=== PATIENT | male | born 1940 | race Caucasian/White ===

== ENCOUNTER 2021-08-19 19:23 | Emergency (ER) | payer MEDICARE, OTHER ==
[~2021-08-19] VITALS: Ht 172.7 cm; Wt 75.0 kg
[~2021-08-19 19:23] MED LIST: ALPR1TAB6 PO; ALPR2TAB7 PO; ESZO3TAB28 PO; LURA40TA PO; VENL37.57 PO
--- NOTE | 2021-08-19 19:29 | PHYS DOC ---
Past History Past Medical History: Anxiety, Depression, Other Past Surgical History: Cholecystectomy, Other Alcohol Use: None Drug Use: None Adult General Chief Complaint Chief Complaint: ABDOMINAL PAIN HPI HPI Patient is a 81-year-old male presenting via EMS for stomach pain. Reports he had pizza and ice cream for lunch and a couple hours after ingestion developing periumbilical stomach cramping with associated nausea. Symptoms waxed and waned since onset but have been more problematic past 2 hours prompting him to call EMS for transfer to our facility. Patient was initially transferred to [facility] but was ultimately deferred to our ER. On arrival, patient complains of ongoing periumbilical cramping that does not radiate. States pain at its worst is 10/10 in severity but reports improvement with administered 8 mg Zofran by EMS. Has history of cholecystectomy and colon resection due to cancerous polyps in the past otherwise no other abdominal surgeries. He is currently being treated for anxiety and depression, no other medical issues reported. Denies any alcohol tobacco or illicit drug use. He is fully vaccinated against COVID-19 with no reported symptoms, sick contacts or recent travel Review of Systems Review of Systems Fourteen body systems of review of systems have been reviewed. See HPI for pertinent positives and negative responses, other doe all other systems are negative, non-pertinent or non-contributory Allergies Allergies Allergies Coded Allergies Type Severity Reaction Last Updated Verified No Known Drug Allergies 03/24/15 No Physical Exam Physical Exam Constitutional: Well developed, well nourished, no acute distress, non-toxic appearance. HENT: Normocephalic, atraumatic, bilateral external ears normal, oropharynx moist, no oral exudates, nose normal. Eyes: PERRLA, EOMI, conjunctiva normal, no discharge. Neck: Normal range of motion, no tenderness, supple, no stridor. Cardiovascular: Heart rate regular, sinus rhythm, 2+ holosystolic murmur otherwise no rubs or gallops Lungs & Thorax: Bilateral breath sounds clear to auscultation Abdomen: Bowel sounds normal, soft, generalized midline abdominal pain without any guarding or rebound, no masses, no pulsatile masses. Nonsurgical abdomen, no peritoneal signs Skin: Warm, dry, no erythema, no rash. Back: No tenderness, no CVA tenderness. Extremities: No tenderness, no cyanosis, no clubbing, ROM intact, no edema. Neurologic: Alert and oriented X 3, grossly normal motor & sensory function, no focal deficits noted. Psychologic: Affect normal, judgement normal, mood normal. Current Patient Data Vital Signs Vital Signs Date Time Temp Pulse Resp B/P (MAP) Pulse Ox O2 Delivery O2 Flow Rate FiO2 08/19/21 19:29 98.3 91 18 159/92 (114) 96 Room Air Vital Signs Date Time Temp Pulse Resp B/P (MAP) Pulse Ox O2 Delivery O2 Flow Rate FiO2 08/19/21 19:29 98.3 91 18 159/92 (114) 96 Room Air Lab Results Laboratory Tests Test 08/19/21 19:45 White Blood Count 13.5 x10^3/uL Red Blood Count 4.68 x10^6/uL Hemoglobin 15.9 g/dL Hematocrit 45.9 % Mean Corpuscular Volume 98 fL Mean Corpuscular Hemoglobin 34 pg Mean Corpuscular Hemoglobin Concent 35 g/dL Red Cell Distribution Width 13.9 % Platelet Count 311 x10^3/uL Neutrophils (%) (Auto) 87 % Lymphocytes (%) (Auto) 6 % Monocytes (%) (Auto) 6 % Eosinophils (%) (Auto) 0 % Basophils (%) (Auto) 1 % Neutrophils # (Auto) 11.7 x10^3uL Lymphocytes # (Auto) 0.8 x10^3/uL Monocytes # (Auto) 0.9 x10^3/uL Eosinophils # (Auto) 0.0 x10^3/uL Basophils # (Auto) 0.1 x10^3/uL Sodium Level 140 mmol/L Potassium Level 4.4 mmol/L Chloride Level 100 mmol/L Carbon Dioxide Level 27 mmol/L Anion Gap 13 Blood Urea Nitrogen 18 mg/dL Creatinine 0.9 mg/dL Estimated GFR (Cockcroft-Gault) 81.2 BUN/Creatinine Ratio 20 Glucose Level 118 mg/dL Calcium Level 9.5 mg/dL Total Bilirubin 0.6 mg/dL Aspartate Amino Transf (AST/SGOT) 20 U/L Alanine Aminotransferase (ALT/SGPT) 20 U/L Alkaline Phosphatase 109 U/L Troponin I High Sensitivity 12 ng/L Total Protein 8.2 g/dL Albumin 3.8 g/dL Albumin/Globulin Ratio 0.9 Lipase 58 U/L Current Medications Medications (Trade) Dose Ordered Sig/Km Route PRN Reason Start Time Stop Time Status Last Admin Dose Admin Sodium Chloride 500 ml @ 0 mls/hr 1X ONCE IV 08/19/21 19:45 08/19/21 19:46 DC 08/19/21 19:50 Iohexol (Omnipaque 300 Mg/ml) 75 ml 1X ONCE IV 08/19/21 19:45 08/19/21 19:56 DC 08/19/21 20:38 Morphine Sulfate (Morphine 4mg Syringe) 4 mg 1X ONCE IV 08/19/21 19:45 08/19/21 19:56 DC 08/19/21 19:50 Info (Do NOT chart on this entry -- for MONITORING) 1 each PRN DAILY PRN MC SEE COMMENTS 08/19/21 20:00 08/21/21 19:59 EKG EKG EKG ordered and interpreted by myself at 1952 hrs. as sinus rhythm at 87 bpm, prolonged QRS at 132 otherwise unremarkable intervals, no axis deviation, T wave inversion noted in lead III, V1 and V3, right bundle branch block, no STEMI Radiology/Procedures Radiology/Procedures Exam: CT of abdomen and pelvis with contrast INDICATION: Epigastric pain TECHNIQUE: Sequential axial images through the abdomen and pelvis obtained following the administration of 75 mL of Isovue-370 IV contrast. Sagittal and coronal reformatted images were reconstructed from the axial data and reviewed. Exposure: One or more of the following in the visualized dose reduction techniques were utilized for this examination: 1. Automated exposure control 2. Adjustment of the MA and/or KV according to patient size 3. Use of iterative of reconstructive technique Comparisons: None FINDINGS: Heart size is normal. No pericardial effusion. Strandy opacities the dependent portion of the lungs likely representing atelectasis. No pleural effusion. Liver, spleen, pancreas and adrenals are unremarkable. Gallbladder surgically absent. No perinephric inflammation or hydronephrosis. No renal or ureteral calculi are identified. Bladder is partially distended and not well evaluated. Prostate is not enlarged. Dilated loops of small bowel are noted in the left hemiabdomen. There is transition to decompressed bowel noted in the right lower quadrant. The more dis gutierrez small bowel loops are decompressed. Large bowel is unremarkable. No free intra-abdominal air or fluid. Abdominal aorta has normal course and caliber. Abdominal vasculature is patent. No enlarged intra-abdominal lymph nodes are identified. No suspicious osseous lesions or acute fractures. IMPRESSION: Findings a small bowel obstruction with transition in the right lower quadrant. Electronically signed by: Lisa Holder MD (08/19/2021 9:01 PM) [facility] Heart Score C/O Chest Pain: No HEART Score for Chest Pain: HEART Score for Chest Pain Response (Comments) Value History Slighlty/Non-Suspicious 0 ECG Nonspecific Repolarizatio 1 Age > 65 2 Risk Factors 1 or 2 Risk Factors 1 Troponin < Normal Limit 0 Total 4 Risk Factors: Risk Factors: DM, Current or recent (<one month) smoker, HTN, HLP, family history of CAD, obesity. Risk Scores: Risk Factors: DM, Current or recent (<one month) smoker, HTN, HLP, family history of CAD, obesity. Course & Med Decision Making Course & Med Decision Making ABCs unremarkable HPI physical exam and comprehensive ER work-up concerning for small bowel obstr uction Patient symptoms improved but did not totally resolve with provided ER care. I disclosed need for hospitalization for serial abdominal exams and surgical consultation to reduce risk of current pathology worsening Attempts were made per patient request to transfer to [facility] who declined patient transfer. Next choice was [facility]. I spoke with on-call surgeon who agreed need for hospital transfer. I spoke with hospitalist who also agreed and accepted patient transfer Patient and son at bedside educated on entirety of ER findings and discussions above and were amenable to plan of care for hospital transfer as indicated. All questions and concerns addressed prior to transfer via EMS Dragon Disclaimer Dragon Disclaimer This electronic medical record was generated, in whole or in part, using a voice recognition dictation system. Departure Departure: Impression: Primary Impression: Small bowel obstruction Disposition: 02 SHORT TERM HOSPITAL ([facility]) Admitting Physician: Other (DR [email or web address]) Condition: STABLE AKSHAT CINTRON DO Aug 19, 2021 19:29
[2021-08-19] MEDS ORDERED: MORPHINE SULFATE 4 MG/ML DISP.SYRIN. IV ONE ×2 (19:45→23:00)
[2021-08-19] MEDS ORDERED: IV NORMAL SALINE 500ML 500 ML IV ONE (19:45)
[2021-08-19] MEDS ORDERED: IOHEXOL 300 MG/ML 75 ML VIAL. IV ONE (19:45)
[2021-08-19 20:00] LABS: BASO # 0.1 x10^3/uL (0.0-0.2); BASO % 1 % (0-3); EOS % 0 % (0-3); HEMATOCRIT 45.9 % (39.0-53.0); HEMOGLOBIN 15.9 g/dL (13.0-17.5); LYMPH # 0.8 x10^3/uL (1.0-4.8); LYMPH % 6 % (24-48); MEAN CORPUSCULAR HEMOGLOBIN 34 pg (25-35); MEAN CORPUSCULAR HGB CONC 35 g/dL (31-37); MEAN CORPUSCULAR VOLUME 98 fL (79-100); MONO # 0.9 x10^3/uL (0.0-1.1); MONO % 6 % (0-9); NEUT # 11.7 x10^3uL (1.8-7.7); NEUT % 87 % (31-73); PLATELET COUNT 311 x10^3/uL (140-400); RED BLOOD COUNT 4.68 x10^6/uL (4.30-5.70); RED CELL DISTRIBUTION WIDTH 13.9 % (11.5-14.5); WHITE BLOOD COUNT 13.5 x10^3/uL (4.0-11.0)
[2021-08-19] MEDS ORDERED: CONTRAST GIVEN. MC PRN (20:00)
[2021-08-19 20:10] LABS: CALCIUM 9.5 mg/dL (8.5-10.1); CREATININE 0.9 mg/dL (0.7-1.3); GFR 81.2; POTASSIUM 4.4 mmol/L (3.5-5.1)
[2021-08-19 20:15] LABS: ALBUMIN 3.8 g/dL (3.4-5.0); ALBUMIN/GLOBULIN RATIO 0.9 (1.0-1.7); TOTAL BILIRUBIN 0.6 mg/dL (0.2-1.0); TOTAL PROTEIN 8.2 g/dL (6.4-8.2)
--- NOTE | 2021-08-19 20:58 | EKG ---
[address] [address] Test Date: 2021-08-19 Test Time: 19:48:56 Pat Name: ZAKI JANSEN Department: Room: Gender: M [employer]: LUIS : 1940 Requested By: AKSHAT CINTRON Order Number: [id number] Reading MD: Jez Jain MD Measurements Intervals Terry Rate: 87 P: 7 WY: 158 QRS: 86 QRSD: 132 T: 22 QT: 356 QTc: 429 Interpretive Statements SINUS RHYTHM RIGHT BUNDLE BRANCH BLOCK RVH WITH REPOLARIZATION ABNORMALITY Electronically Signed On 08-21-2021 9:15:44 CLIENT ACCOUNT ASSISTANT by Jez Jain MD
--- NOTE | 2021-08-19 21:03 | RAD ---
Exam: CT of abdomen and pelvis with contrast INDICATION: Epigastric pain TECHNIQUE: Sequential axial images through the abdomen and pelvis obtained following the administrati on of 75 mL of Isovue-370 IV contrast. Sagittal and coronal reformatted images were reconstructed fro m the axial data and reviewed. Exposure: One or more of the following in the visualized dose reduction techniques were utilized for this examination: 1. Automated exposure control 2. Adjustment of the MA and/or KV according to patient size 3. Use of iterative of reconstructive technique Comparisons: None FINDINGS: Heart size is normal. No pericardial effusion. Strandy opacities the dependent portion of the lungs l ikely representing atelectasis. No pleural effusion. Liver, spleen, pancreas and adrenals are unremarkable. Gallbladder surgically absent. No perinephric inflammation or hydronephrosis. No renal or ureteral calculi are identified. Bladder is partially distended and not well evaluated. Prostate is not enlarged. Dilated loops of small bowel are noted in the left hemiabdomen. There is transition to decompressed b owel noted in the right lower quadrant. The more distal small bowel loops are decompressed. Large bow el is unremarkable. No free intra-abdominal air or fluid. Abdominal aorta has normal course and caliber. Abdominal vasculature is patent. No enlarged intra-abdominal lymph nodes are identified. No suspicious osseous lesions or acute fractures. IMPRESSION: Findings a small bowel obstruction with transition in the right lower quadrant. Electronically signed by: Lisa Holder MD (08/19/2021 9:01 PM) [facility]
[2021-08-19 22:05] LABS: INFLUENZA A PATIENT NEGATIVE (NEGATIVE); INFLUENZA B PATIENT NEGATIVE (NEGATIVE)
[2021-08-19] MEDS ORDERED: IV NORMAL SALINE 1,000ML 1,000 ML IV ONE (23:00)
[2021-08-19] MEDS ORDERED: TEMAZEPAM 15 MG CAPSULE PO PRN (23:15)
[2021-08-20 01:00] VITALS: BP 128/70
== END 2021-08-20 01:55 | disposition short-term general hospital (02) ==
LOC: ER 19:23
DX: K56.609 Unspecified intestinal obstruction, unspecified as to partial versus complete obstruction (principal); Z90.49 Acquired absence of other specified parts of digestive tract; Z20.822 Contact with and (suspected) exposure to COVID-19
CPT/HCPCS: 36415; 74177; 80053; 83690; 84484; 85025; 87428; 93005; 96361; 96374; 96376; 99285; C9803; J2270; J7030; J7040; Q9967; U0003